=== PATIENT | male | born 1945 | race Caucasian/White ===

== ENCOUNTER 2017-04-05 20:53 | Emergency (ER) | payer MEDICAID ==
[~2017-04-05 20:53] MED LIST: A/B OTIC15 ML AU; ALPRAZOLAM1 MG PO; BENAZEPRIL40 M1 PO; GLUCOVANCE1 TA2 PO; MAGNESIUM OXID400 MG PO; MELOXICAM15 M1; PAXIL10 MG PO; PIOGLITAZONE PO; SIMVASTATIN40 M1 PO
[2017-04-05 23:26] VITALS: BP 108/54
== END 2017-04-05 23:32 | disposition home or self-care (01) ==
LOC: ED 20:53
DX: F41.0 Panic disorder [episodic paroxysmal anxiety] (principal); I10 Essential (primary) hypertension; E11.9 Type 2 diabetes mellitus without complications; I25.10 Atherosclerotic heart disease of native coronary artery without angina pectoris; Z79.84 Long term (current) use of oral hypoglycemic drugs
CPT/HCPCS: 82962

== ENCOUNTER 2018-06-29 21:21 | Inpatient (IN) | payer MEDICAID ==
[~2018-06-29] VITALS: Ht 177.8 cm; Wt 62.3 kg
[2018-06-29 21:27] VITALS: Ht 177.8 cm; Wt 62.3 kg
[2018-06-29 22:33] LABS: BASOPHIL % 0.5 % (0-2); PLATELET COUNT 164 x10^3mcL (130-400); RED CELL DISTRIBUTION WIDTH 13.5 % (11.5-14.5)
[2018-06-29 22:36] LABS: microscopic required? YES; urine erythrocyte TRACE (NEGATIVE)
[2018-06-29 22:52] LABS: CALCIUM 8.3 mg/dL (8.5-10.1); CARBON DIOXIDE 25.6 mmol/L (21-32); CHLORIDE SERUM 98 mmol/L (98-107); CREATININE SERUM 1.1 mg/dL (0.7-1.3); GLUCOSE SERUM 250 mg/dL (74-106); POTASSIUM SERUM 4.4 mmol/L (3.5-5.1); SODIUM SERUM 131 mmol/L (136-145)
[2018-06-29 22:57] LABS: ALKALINE PHOSPHATASE 75 U/L (46-116); ALT/SGPT 19 U/L (16-63); AST/SGOT 20 U/L (15-37); BILIRUBIN TOTAL 0.32 mg/dL (0.20-1.00); C REACTIVE PROTEIN 2.8 mg/dL (<=0.9); TOTAL PROTEIN, SERUM 7.1 g/dL (6.4-8.2)
[2018-06-29 23:17] LABS: T3 TOTAL 1.23 ng/mL
[2018-06-29 23:23] LABS: ERYTHROCYTE SED RATE 30 mm/hr (0-20)
[2018-06-29 23:25] LABS: FREE T4 1.31 ng/dL (0.76-1.46); FREE THYROXINE INDEX 3.9 ug/dL (1.4-4.5); T4(THYROXINE) 11.1 ug/dL (4.7-13.3)
[2018-06-30] VITALS (7 sets, daily range): BP systolic 95–131; BP diastolic 31–54
[2018-06-30] MEDS ORDERED: METFORMIN HCL1000 MG PO (00:52)
[2018-06-30] MEDS ORDERED: INVOKANA300 MG PO (00:53)
[2018-06-30] MEDS ORDERED: ZOCOR40 MG PO (00:53)
[2018-06-30] MEDS ORDERED: TRADJENTA5 M1 PO (00:53)
[2018-06-30] MEDS ORDERED: ACT15 PO (00:54)
[2018-06-30] MEDS ORDERED: MELOXICAM15 M1 PO (00:55)
[2018-06-30] MEDS ORDERED: LOTENSIN40 MG PO (00:55)
[2018-06-30] MEDS ORDERED: METOCLOPRAMIDE H5 M1 PO (00:55)
[2018-06-30] MEDS ORDERED: CLARITIN10 MG PO (00:56)
[2018-06-30] MEDS ORDERED: TRAMADOL HCL50 MG PO (00:56)
[2018-06-30 01:45] LABS: MAGNESIUM 1.7 mg/dL (1.8-2.4); PHOSPHOROUS 3.1 mg/dL (2.5-4.9)
[2018-06-30 06:25] LABS: CALCIUM 8.3 mg/dL (8.5-10.1); CARBON DIOXIDE 26.3 mmol/L (21-32); CHLORIDE SERUM 101 mmol/L (98-107); GLUCOSE SERUM 178 mg/dL (74-106); MAGNESIUM 1.7 mg/dL (1.8-2.4); POTASSIUM SERUM 4.7 mmol/L (3.5-5.1); SODIUM SERUM 136 mmol/L (136-145)
[2018-06-30 06:51] LABS: BASOPHIL % 0.4 % (0-2); PLATELET COUNT 157 x10^3mcL (130-400); RED CELL DISTRIBUTION WIDTH 13.5 % (11.5-14.5)
[2018-07-01 05:39] VITALS: BP 126/55
[2018-07-01 06:17] LABS: BASOPHIL % 0.5 % (0-2); PLATELET COUNT 142 x10^3mcL (130-400); RED CELL DISTRIBUTION WIDTH 12.9 % (11.5-14.5)
[2018-07-01 07:09] LABS: CALCIUM 8.2 mg/dL (8.5-10.1); CARBON DIOXIDE 24.7 mmol/L (21-32); CHLORIDE SERUM 105 mmol/L (98-107); CREATININE SERUM 0.8 mg/dL (0.7-1.3); GLUCOSE SERUM 115 mg/dL (74-106); MAGNESIUM 1.8 mg/dL (1.8-2.4); PHOSPHOROUS 3.4 mg/dL (2.5-4.9); POTASSIUM SERUM 4.6 mmol/L (3.5-5.1); SODIUM SERUM 138 mmol/L (136-145)
[2018-07-01 08:00] VITALS: BP 109/52
[2018-07-01 13:41] VITALS: BP 117/48
[2018-07-01 16:51] VITALS: BP 123/53
[2018-07-01 21:00] VITALS: BP 108/64
[2018-07-02 05:27] VITALS: BP 111/49
[2018-07-02 07:19] LABS: BASOPHIL % 0.1 % (0-2); PLATELET COUNT 168 x10^3mcL (130-400); RED CELL DISTRIBUTION WIDTH 13.1 % (11.5-14.5)
[2018-07-02 07:40] LABS: CALCIUM 8.4 mg/dL (8.5-10.1); CARBON DIOXIDE 23.9 mmol/L (21-32); CHLORIDE SERUM 108 mmol/L (98-107); CREATININE SERUM 0.8 mg/dL (0.7-1.3); GLUCOSE SERUM 109 mg/dL (74-106); MAGNESIUM 1.8 mg/dL (1.8-2.4); PHOSPHOROUS 3.5 mg/dL (2.5-4.9); POTASSIUM SERUM 4.2 mmol/L (3.5-5.1); SODIUM SERUM 139 mmol/L (136-145)
[2018-07-02 08:45] VITALS: BP 154/58
[2018-07-02] MEDS ORDERED: LEVAQUIN750 MG PO (13:19)
[2018-07-02] MEDS ORDERED: VENTOLIN H0.09 MG/A1 INH (13:22)
[2018-07-02] MEDS ORDERED: PRE20 PO (13:24)
[2018-07-02 15:05] VITALS: BP 154/58
== END 2018-07-02 15:43 | disposition home or self-care (01) | DRG 139 ==
LOC: ED 21:21 → DU 06-30 00:32 → MU 07-01 17:04
PROVIDERS: Specialist; ADMIT Family Medicine
DX: J18.9 Pneumonia, unspecified organism (principal); J96.01 Acute respiratory failure with hypoxia; N17.0 Acute kidney failure with tubular necrosis; E44.0 Moderate protein-calorie malnutrition; D68.69 Other thrombophilia; E11.65 Type 2 diabetes mellitus with hyperglycemia; E83.42 Hypomagnesemia; E87.1 Hypo-osmolality and hyponatremia; E86.0 Dehydration; F41.9 Anxiety disorder, unspecified; I10 Essential (primary) hypertension; Z79.84 Long term (current) use of oral hypoglycemic drugs
CPT/HCPCS: 36600; 82962; 84439; 87804; J1956; J2060; J2405; J2543; J2920; J7030; J7613; J7620; J7644; Q0092